=== PATIENT | female | born 1965 | race Caucasian/White ===

== ENCOUNTER 2018-08-19 21:18 | Emergency (ER) | payer BC ==
[~2018-08-19] VITALS: Ht 167.6 cm; Wt 108.9 kg
[2018-08-19 21:20] VITALS: BP_SYST 160
--- NOTE | 2018-08-19 23:00 | NUR ---
2300 - Patient to ER bed 6 to gown for evaluation. Side rails up.
--- NOTE | 2018-08-19 23:20 | NUR ---
2320 - Assumed care of pt. Pt states that she has had soft BM x 1 week, but today has had 14 episodes of watery diarrhea. Pt states that she drank pedialyte today as well. Pt denies n/v/abd pain. States she had something similar happen 10 year ago w/ no diagnosis. A&OX4. Resp even and unlabored, appears comfortable. Awaiting MD elder.
--- NOTE | 2018-08-19 23:40 | NUR ---
2340 - ER at bedside examining patient.
--- NOTE | 2018-08-19 23:40 | NUR ---
Note undone in EDM - 08/19/18 at 2353 by [email or web address] [id number] - Patient given written and verbal discharge instructions and verbalizes understanding. ER discussed with patient the results and treatment provided. Patient in stable condition. ID arm band removed. Rx of imodium given. Patient educated on pain management and to follow up with PMD. Pain Scale 0. Opportunity for questions provided and answered. Medication side effect fact sheet provided.
--- NOTE | 2018-08-19 23:51 | NUR ---
9660 - Patient given written and verbal discharge instructions and verbalizes understanding. ER MD discussed with patient the results and treatment provided. Patient in stable condition. ID arm band removed. Rx of imodium given. Patient educated on pain management and to follow up with PMD. Pain Scale 0. Opportunity for questions provided and answered. Medication side effect fact sheet provided.
== END 2018-08-19 23:51 | disposition home or self-care (01) ==
LOC: SED 21:18
DX: R19.7 Diarrhea, unspecified (principal); R11.0 Nausea; I10 Essential (primary) hypertension; Z90.710 Acquired absence of both cervix and uterus; Z91.018 Allergy to other foods
CPT/HCPCS: 81002; 99282